=== PATIENT | female | born 1990 | race Caucasian/White ===

== ENCOUNTER 2017-01-14 16:57 | Inpatient (IN) | payer OTHER ==
[2017-01-14 19:33] VITALS: BMI 23.3
--- NOTE | 2017-01-14 20:15 | HP ---
COWS - Scale Resting Pulse: 1= [place] 81-100 Sweatin=Flushed/Facial Moisture Restless Observation: 5= Unable to Sit Still Pupil Size: 2= Moderately Dilated Bone or Joint Aches: 4=Acute Joint/Muscle Pain Runny Nose/ Eye Tearin= Nasal Congestion GI Upset > 30mins: 1= Stomach Cramp Tremor Observation: 2= Slight Tremor Visible Yawning Observation: 1= 1-2x During Session Anxiety or Irritability: 4=Extreme Anxiety Goose Flesh Skin: 0=Smooth Skin COWS Score: 23 Admission ROS S - HPI Chief Complaint: C/O WITHDRAWAL SX'S. SEEKING DETOX TXMENT. Allergies/Adverse Reactions: Allergies Allergy/AdvReac Type Severity Reaction Status Date / Time No Known Allergies Allergy Verified 01/14/17 20:09 History of Present Illness: 26 Y.O. FEMALE WITH OPIOID DEPENDENCE ADMITTED FOR DETOX TXMENT. DENIES RECENT DETOX. REPORTS LONGEST DRUG FREE PERIOD 7 MONTHS. CLIENT AWARE TXMENT IS FOR APPROX 7 DAYS HAS AGREED TO ADMISSION. Exam Limitations: No Limitations - Ebola screening Have you traveled outside of the country in the last 21 days: No Have you had contact with anyone from an Ebola affected area: No Have you been sick,other than usual withdrawal symptoms: No Do you have a fever: No - Review of Systems Constitutional: Chills, Loss of Appetite, Malaise, Night Sweats EENT: reports: No Symptoms Reported Respiratory: reports: No Symptoms reported Cardiac: reports: No Symptoms Reported GI: reports: Poor Appetite, Poor Fluid Intake, Abdominal cramping : reports: No Symptoms Reported Musculoskeletal: reports: Back Pain Integumentary: reports: No Symptoms Reported Neuro: reports: No Symptoms reported Endocrine: reports: No Symptoms Reported Hematology: reports: No Symptoms Reported Psychiatric: reports: Anxious Other Systems: Reviewed and Negative Patient History - Patient Medical History Hx Anemia: No Hx Asthma: Yes Hx Chronic Obstructive Pulmonary Disease (COPD): No Hx Cancer: No Hx Cardiac Disorders: No Hx Congestive Heart Failure: No Hx Hypertension: No Hx Hypercholesterolemia: No Hx Pacemaker: No HX Cerebrovascular Accident: No Hx Seizures: No Hx Dementia: No Hx Diabetes: No Hx Gastrointestinal Disorders: Yes (GERD) Hx Liver Disease: No Hx Genitourinary Disorders: No Hx Sexually Transmitted Disorders: No Hx Renal Disease (ESRD): No Hx Thyroid Disease: No Hx Human Immunodeficiency Virus (HIV): No Hx Hepatitis C: No Hx Depression: Yes (NO MEDS) Hx Suicide Attempt: Yes (ATTEMPTED OD 11/2016. PRESENTLY DENIES SI) Hx Bipolar Disorder: Yes (NO MEDS) Hx Schizophrenia: No Other Medical History: DENIES - Patient Surgical History Past Surgical History: No Hx Neurologic Surgery: No Hx Cataract Extraction: No Hx Cardiac Surgery: No Hx Lung Surgery: No Hx Breast Surgery: No Hx Breast Biopsy: No Hx Abdominal Surgery: No Hx Appendectomy: No Hx Cholecystectomy: No Hx Genitourinary Surgery: No Hx Section: No Other Surgical History: birthmark removal - PPD History Previous Implant?: Yes Documented Results: Negative w/proof Implanted On Prior [facility] Admission?: Yes Date: 08/30/14 PPD to be Administered?: Yes - Reproductive History Patient is a Female of Child Bearing Age (11 -55 yrs old): Yes Last Menstrual Period: 01/24/16 (IRREG) Patient : No (NEG UHCG) - Smoking Cessation Smoking history: Current every day smoker Have you smoked in the past 12 months: Yes Aproximately how many cigarettes per day: 20 Cigars Per Day: 0 Hx Chewing Tobacco Use: No Initiated information on smoking cessation: Yes 'Breaking Loose' booklet given: 01/14/17 - Substance & Tx. History Hx Alcohol Use: No Hx Substance Use: Yes Substance Use Type: Cocaine, Heroin Hx Substance Use Treatment: Yes ([facility]) - Substances Abused HEROIN Route: Injection Frequency: Daily Amount used: 2 BUNDLES Age of first use: 19 Date of Last Use: 01/13/17 COCAINE Route: Smoking Frequency: 3-6 times per week Amount used: $60/ D Age of first use: 23 Date of Last Use: 01/13/17 Family Disease History - Family Disease History Family Disease History: Other: Father (alcohol,dsa) Admission Physical Exam BHS - Vital Signs Vital Signs: Vital Signs - 24 hr 01/14/17 19:30 Temperature 97.8 F Pulse Rate 91 H Respiratory 18 Rate Blood Pressure 111/67 - Physical General Appearance: Yes: Disheveled, Tremorous, Anxious HEENTM: Yes: EOMI, Normocephalic, Normal Voice, ARIN, Pharynx Normal Respiratory: Yes: Chest Non-Tender, Lungs Clear, Normal Breath Sounds, No Respiratory Distress, No Accessory Muscle Use Neck: Yes: No masses,lesions,Nodules, Supple, Trachea in good position Breast: Yes: Breast Exam Deferred Cardiology: Yes: Regular Rhythm, S1, S2, Tachycardia Abdominal: Yes: Normal Bowel Sounds, Non Tender, Soft Genitourinary: Yes: Within Normal Limits Back: Yes: Within Normal Limits Musculoskeletal: Yes: full range of Motion, Gait Steady Extremities: Yes: Normal Capillary Refill, Normal Range of Motion, Non-Tender, Tremors Neurological: Yes: wholesaler II-XII NML intact, Fully Oriented, Alert, Motor Strength 5/5 Integumentary: Yes: Track Fuentes (UE) Lymphatic: Yes: Within Normal Limits - Diagnostic (1) Nicotine dependence Current Visit: Yes Status: Chronic Qualifiers: Nicotine product type: cigarettes Substance use status: uncomplicated Qualified Code(s): F17.210 - Nicotine dependence, cigarettes, uncomplicated (2) Opioid dependence with withdrawal Current Visit: Yes Status: Chronic (3) Cocaine dependence, uncomplicated Current Visit: Yes Status: Chronic (4) Asthma Current Visit: Yes Status: Chronic Qualifiers: Asthma severity: mild intermittent Asthma complication type: uncomplicated Qualified Code(s): J45.20 - Mild intermittent asthma, uncomplicated Cleared for Admission [facility] - Detox or Rehab [facility] Level of Care: Medically Managed Detox Regimen/Protocol: Methadone [facility] Breath Alcohol Content Breath Alcohol Content: 0 Urine Pregancy Test - Result Urine Test Results: Negative- NO Line Present Urine Drug Screen - Results Drug Screen Negative: No Urine Drug Screen Results: DALE-Cocaine, OPI-Opiates, OXY-Oxycodone
[2017-01-14] MEDS ORDERED: P-EPHED 60MG/TRIPROLIDI 2.5MG TABLET PO PRN (20:25)
[2017-01-14] MEDS ORDERED: MAGNESIUM CITRATE 300 ML BOTTLE PO PRN (20:25)
[2017-01-14] MEDS ORDERED: ACETAMINOPHEN 325 MG TABLET (FP) PO PRN (20:25)
[2017-01-14] MEDS ORDERED: MENTHOL/PHENOL 1 EACH UD MM PRN (20:25)
[2017-01-14] MEDS ORDERED: NICOTINE POLACRILEX 2 MG GUM BC PRN (20:25)
[2017-01-14] MEDS ORDERED: IBUPROFEN 400 MG TABLET (FP) PO PRN (20:25)
[2017-01-14] MEDS ORDERED: LOPERAMIDE HCL 2 MG CAPSULE PO PRN (20:25)
[2017-01-14] MEDS ORDERED: MAGNESIUM HYDROX 2400MG/30ML ORAL SUSPENSION 30 ML CUP PO PRN (20:25)
[2017-01-14] MEDS ORDERED: guaiFENesin/D-METHORPHAN HB 10 ML UNIT-DOSE CUPS PO PRN (20:25)
[2017-01-14] MEDS ORDERED: MAG HYDROX/AL HYDROX/SIMETH 30 ML UNIT-DOSE CUP PO PRN (20:25)
[2017-01-14] MEDS ORDERED: METHADONE HCL 10 MG TABLET (FOR DETOX USE ONLY) PO ONE ×3 (20:25→23:00)
[2017-01-14] MEDS ORDERED: hydrOXYzine PAMOATE 50 MG CAPSULE (FP) PO PRN (20:25)
[2017-01-14] MEDS ORDERED: diphenhydrAMINE HCL 50 MG CAPSULE PO PRN (20:25)
[2017-01-14] MEDS ORDERED: ALBUTEROL SO4 2.5/IPRATROPIUM 0.5 INH SOL 3 ML VIAL.NEB. NEB PRN (20:27)
[2017-01-14] MEDS: diazePAM 5 MG TABLET PO PRN (22:45)
[2017-01-14] MEDS: NICOTINE 21 MG/24 HOURS TOPICAL PATCH TD SCH (22:47)
[2017-01-14] MEDS: THIAMINE HCL 100 MG TABLET (FP) PO SCH (22:49)
[2017-01-14 23:03] LABS: URINE APPEARANCE CLOUDY; URINE BILIRUBIN NEGATIVE (NEGATIVE); URINE BLOOD NEGATIVE (NEGATIVE); URINE COLOR DKYELLOW; URINE GLUCOSE (UA) NEGATIVE (NEGATIVE); URINE KETONE NEGATIVE (NEGATIVE); URINE NITRITE NEGATIVE (NEGATIVE); URINE UROBILINOGEN 2.0 E.U/dl E.U./dl (0.2-1.0)
[2017-01-14 23:11] LABS: URINE LEUK ESTERASE 2+ (NEGATIVE); URINE PROTEIN 1+ (NEGATIVE)
[2017-01-14 23:14] LABS: URINE BACTERIA RARE /hpf (NONE SEEN); URINE MUCUS RARE; URINE RBC 3 /hpf (0-3); URINE WBC 42 /hpf (3-5)
[2017-01-15] MEDS ORDERED: METHADONE HCL 10 MG TABLET (FOR DETOX USE ONLY) PO ONE (10:00)
--- NOTE | 2017-01-15 10:00 | PN ---
BHS COWS - Scale Resting Pulse: 0= [place] 80 or Below Sweatin=Flushed/Facial Moisture Restless Observation: 1= Difficult to Sit Still Pupil Size: 0= Normal to Room Light Bone or Joint Aches: 2= Severe Diffuse Aches Runny Nose/ Eye Tearin= Runny Nose/Eyes GI Upset > 30mins: 2= Nausea/Diarrhea Tremor Observation of Outstretched Hands: 2= Slight Tremor Visible Yawning Observation: 2= >3x During Session Anxiety or Irritability: 2=Irritable/Anxious Goose Flesh Skin: 3=Piloerection COWS Score: 18 BHS Progress Note (SOAP) Subjective: sweats irritable agitation anxiety interrupted sleep nausea Objective: 01/15/17 09:59 Vital Signs Temperature 97.9 F 01/15/17 06:16 Pulse Rate 71 01/15/17 06:16 Respiratory Rate 18 01/15/17 06:16 Blood Pressure 100/61 01/15/17 06:16 O2 Sat by Pulse Oximetry (%) Laboratory Tests 01/14/17 22:50 Urine Color Dkyellow Urine Appearance Cloudy Urine pH 5.0 Ur Specific [place] 1.026 Urine Protein 1+ H Urine Glucose (UA) Negative Urine Ketones Negative Urine Blood Negative Urine Nitrite Negative Urine Bilirubin Negative Urine Urobilinogen 2.0 e.u/dl H Ur Leukocyte Esterase 2+ H D Urine RBC 3 Urine WBC 42 Ur Epithelial Cells Many Urine Bacteria Rare Urine Mucus Rare labs pending awake/alert ambulating no acute distress Assessment: 01/15/17 10:00 withdrawal sx Plan: continue detox increase fluids labs pending tigan prn
[2017-01-15] MEDS ORDERED: TRIMETHOBENZAMIDE HCL 300 MG CAPSULE PO PRN (10:01)
[2017-01-15] MEDS: NICOTINE 21 MG/24 HOURS TOPICAL PATCH TD SCH (10:13)
[2017-01-15] MEDS: PRENATAL VITAMINS W/ FOLIC ACID TABLET (FP) PO SCH (10:14)
[2017-01-15] MEDS: diazePAM 5 MG TABLET PO PRN ×3 (10:14→22:28)
[2017-01-15 10:35] LABS: ALBUMIN 3.3 g/dl (3.4-5.0); ANION GAP 4 (8-16); CALCIUM 8.9 mg/dL (8.5-10.1); CO2 33 mmol/L (21-32); GLUCOSE,RANDOM 80 mg/dL (74-106)
[2017-01-15 10:38] LABS: MCH 28.9 pg (25.7-33.7); MCHC 33.5 g/dl (32.0-36.0); MEAN CELL VOLUME 86.4 fl (80-96); MEAN PLT VOLUME 8.9 fl (7.5-11.1); PLATELET COUNT 224 K/MM3 (134-434); RDW 13.8 % (11.6-15.6); WHITE BLOOD COUNT 8.5 K/mm3 (4.0-10.0)
[2017-01-15 10:40] LABS: ALK PHOS 60 U/L (45-117); BILIRUBIN,TOTAL 0.3 mg/dL (0.2-1.0); CREATININE 0.6 mg/dL (0.55-1.02); SGOT/AST 12 U/L (15-37); SGPT/ALT 14 U/L (12-78); TOT PROT 6.6 g/dl (6.4-8.2)
--- NOTE | 2017-01-15 11:06 | EKG ---
Test Reason : Blood Pressure : / mmHG Vent. Rate : 060 BPM Atrial Rate : 060 BPM P-R Int : 146 ms QRS Dur : 094 ms QT Int : 442 ms P-R-T Axes : 061 066 069 degrees QTc Int : 442 ms NORMAL SINUS RHYTHM NORMAL ECG NO PREVIOUS ECGS AVAILABLE Confirmed by RAMOS UFENTES, SUMEET ([id number]) on 01/15/2017 11:06:31 AM Referred By: David Torres Confirmed By:SUMEET BEASLEY MD
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
[2017-01-15] MEDS ORDERED: ZOLPIDEM TARTRATE 5 MG TABLET PO PRN (16:15)
[2017-01-15] MEDS: THIAMINE HCL 100 MG TABLET (FP) PO SCH (22:28)
[2017-01-16] MEDS ORDERED: METHADONE HCL 5 MG TABLET (FOR DETOX USE ONLY) PO ONE (10:00)
[2017-01-16] MEDS: PRENATAL VITAMINS W/ FOLIC ACID TABLET (FP) PO SCH (10:13)
[2017-01-16] MEDS: diazePAM 5 MG TABLET PO PRN (10:13)
[2017-01-16] MEDS: NICOTINE 21 MG/24 HOURS TOPICAL PATCH TD SCH (10:14)
[2017-01-16] MEDS ORDERED: CYCLOBENZAPRINE HCL 10 MG TABLET (FP) PO PRN (10:50)
--- NOTE | 2017-01-16 10:50 | PN ---
S COWS - Scale Resting Pulse: 1= [place] 81-100 Sweatin=Flushed/Facial Moisture Restless Observation: 1= Difficult to Sit Still Pupil Size: 1= Pupils >than Normal Bone or Joint Aches: 2= Severe Diffuse Aches Runny Nose/ Eye Tearin= Nasal Congestion GI Upset > 30mins: 1= Stomach Cramp Tremor Observation of Outstretched Hands: 1= Tremor [place], Not Seen Yawning Observation: 0= None Anxiety or Irritability: 1=Feels Anxious/Irritable Goose Flesh Skin: 0=Smooth Skin COWS Score: 11 S Progress Note (SOAP) Subjective: interrupted sleep, sweats, lbp Objective: 01/16/17 10:47 Vital Signs Temperature 98.4 F 01/16/17 10:16 Pulse Rate 96 H 01/16/17 10:16 Respiratory Rate 20 01/16/17 10:16 Blood Pressure 108/63 01/16/17 10:16 O2 Sat by Pulse Oximetry (%) Laboratory Tests 01/14/17 01/14/17 01/15/17 07:00 22:50 07:00 WBC 8.5 RBC 4.44 Hgb 12.8 Hct 38.4 MCV 86.4 MCHC 33.5 RDW 13.8 Plt Count 224 MPV 8.9 Sodium Potassium Chloride Carbon Dioxide Anion Gap BUN Creatinine Creat Clearance w eGFR Random Glucose Calcium Total Bilirubin AST ALT Alkaline Phosphatase Total Protein Albumin Urine Color Dkyellow Urine Appearance Cloudy Urine pH 5.0 Ur Specific [place] 1.026 Urine Protein 1+ H Urine Glucose (UA) Negative Urine Ketones Negative Urine Blood Negative Urine Nitrite Negative Urine Bilirubin Negative Urine Urobilinogen 2.0 e.u/dl H Ur Leukocyte Esterase 2+ H D Urine RBC 3 Urine WBC 42 Ur Epithelial Cells Many Urine Bacteria Rare Urine Mucus Rare RPR Titer Hepatitis C Antibody <0.1 01/15/17 01/15/17 07:00 07:00 WBC RBC Hgb Hct MCV MCHC RDW Plt Count MPV Sodium 144 Potassium 4.6 Chloride 107 Carbon Dioxide 33 H Anion Gap 4 L BUN 10 Creatinine 0.6 Creat Clearance w eGFR > 60 Random Glucose 80 Calcium 8.9 Total Bilirubin 0.3 D AST 12 L ALT 14 D Alkaline Phosphatase 60 Total Protein 6.6 Albumin 3.3 L Urine Color Urine Appearance Urine pH Ur Specific [place] Urine Protein Urine Glucose (UA) Urine Ketones Urine Blood Urine Nitrite Urine Bilirubin Urine Urobilinogen Ur Leukocyte Esterase Urine RBC Urine WBC Ur Epithelial Cells Urine Bacteria Urine Mucus RPR Titer Nonreactive Hepatitis C Antibody pt aox3 in nad ambulating Assessment: 01/16/17 10:48 withdrawal sx;s lbp Plan: cont. detox increase fluids flexeril 10mg tid/prn
[2017-01-16 14:02] VITALS: BP 113/72; PULSE 85; TEMP 97.7
--- NOTE | 2017-01-16 17:03 | DS ---
[facility] Detox Discharge Summary Admission Date: 01/14/17 Discharge Date: 01/16/17 - History Present History: Cocaine Dependence, Opioid Dependence Pertinent Past History: Asthma - Physical Exam Results Vital Signs: Vital Signs Temperature 97.7 F 01/16/17 14:02 Pulse Rate 85 01/16/17 14:02 Respiratory Rate 18 01/16/17 14:02 Blood Pressure 113/72 01/16/17 14:02 O2 Sat by Pulse Oximetry (%) Pertinent Admission Physical Exam Findings: Withdrawal sx. Laboratory Last Values WBC 8.5 K/mm3 (4.0-10.0) 01/15/17 07:00 RBC 4.44 M/mm3 (3.60-5.2) 01/15/17 07:00 Hgb 12.8 GM/dL (10.7-15.3) 01/15/17 07:00 Hct 38.4 % (32.4-45.2) 01/15/17 07:00 MCV 86.4 fl (80-96) 01/15/17 07:00 MCHC 33.5 g/dl (32.0-36.0) 01/15/17 07:00 RDW 13.8 % (11.6-15.6) 01/15/17 07:00 Plt Count 224 K/MM3 (134-434) 01/15/17 07:00 MPV 8.9 fl (7.5-11.1) 01/15/17 07:00 Sodium 144 mmol/L (136-145) 01/15/17 07:00 Potassium 4.6 mmol/L (3.5-5.1) 01/15/17 07:00 Chloride 107 mmol/L (98-107) 01/15/17 07:00 Carbon Dioxide 33 mmol/L (21-32) H 01/15/17 07:00 Anion Gap 4 (8-16) L 01/15/17 07:00 BUN 10 mg/dL (7-18) 01/15/17 07:00 Creatinine 0.6 mg/dL (0.55-1.02) 01/15/17 07:00 Creat Clearance w eGFR > 60 (>60) 01/15/17 07:00 Random Glucose 80 mg/dL (74-106) 01/15/17 07:00 Calcium 8.9 mg/dL (8.5-10.1) 01/15/17 07:00 Total Bilirubin 0.3 mg/dL (0.2-1.0) D 01/15/17 07:00 AST 12 U/L (15-37) L 01/15/17 07:00 ALT 14 U/L (12-78) D 01/15/17 07:00 Alkaline Phosphatase 60 U/L (45-117) 01/15/17 07:00 Total Protein 6.6 g/dl (6.4-8.2) 01/15/17 07:00 Albumin 3.3 g/dl (3.4-5.0) L 01/15/17 07:00 Urine Color Dkyellow 01/14/17 22:50 Urine Appearance Cloudy 01/14/17 22:50 Urine pH 5.0 (5.0-8.0) 01/14/17 22:50 Ur Specific [place] 1.026 (1.001-1.035) 01/14/17 22:50 Urine Protein 1+ (NEGATIVE) H 01/14/17 22:50 Urine Glucose (UA) Negative (NEGATIVE) 01/14/17 22:50 Urine Ketones Negative (NEGATIVE) 01/14/17 22:50 Urine Blood Negative (NEGATIVE) 01/14/17 22:50 Urine Nitrite Negative (NEGATIVE) 01/14/17 22:50 Urine Bilirubin Negative (NEGATIVE) 01/14/17 22:50 Urine Urobilinogen 2.0 e.u/dl E.U./dl (0.2-1.0) H 01/14/17 22:50 Ur Leukocyte Esterase 2+ (NEGATIVE) H D 01/14/17 22:50 Urine RBC 3 /hpf (0-3) 01/14/17 22:50 Urine WBC 42 /hpf (3-5) 01/14/17 22:50 Ur Epithelial Cells Many /hpf (FEW) 01/14/17 22:50 Urine Bacteria Rare /hpf (NONE SEEN) 01/14/17 22:50 Urine Mucus Rare 01/14/17 22:50 RPR Titer Nonreactive (NONREACTIVE) 01/15/17 07:00 Hepatitis C Antibody <0.1 s/co ratio (0.0-0.9) 01/14/17 07:00 labs noted,repeat u/a ordered but not given by patient - Treatment Patient has Accepted a Rehab Referral to: Pt. refused referral because she's going to detention - Medication Discharge Medications: Ambulatory Orders NK [No Known Home Medication] 08/28/14 - Diagnosis (1) Nicotine dependence Current Visit: Yes Status: Acute Qualifiers: Nicotine product type: cigarettes Substance use status: uncomplicated Qualified Code(s): F17.210 - Nicotine dependence, cigarettes, uncomplicated (2) Opioid dependence with withdrawal Current Visit: Yes Status: Acute (3) Asthma Current Visit: Yes Status: Chronic Qualifiers: Asthma severity: mild intermittent Asthma complication type: uncomplicated Qualified Code(s): J45.20 - Mild intermittent asthma, uncomplicated (4) Cocaine dependence, uncomplicated Current Visit: Yes Status: Acute (5) Drug-induced mood disorder Current Visit: Yes Status: Acute (6) Insomnia Current Visit: Yes Status: Acute Qualifiers: Insomnia type: drug-induced Qualified Code(s): F19.982 - Other psychoactive substance use, unspecified with psychoactive substance-induced sleep disorder - AMA Did Patient Leave Against Medical Advice: Yes
[2017-01-16 20:59] LABS: URINE APPEARANCE CLEAR; URINE BILIRUBIN NEGATIVE (NEGATIVE); URINE BLOOD NEGATIVE (NEGATIVE); URINE COLOR YELLOW; URINE GLUCOSE (UA) NEGATIVE (NEGATIVE); URINE KETONE NEGATIVE (NEGATIVE); URINE LEUK ESTERASE NEGATIVE (NEGATIVE); URINE NITRITE NEGATIVE (NEGATIVE); URINE PROTEIN NEGATIVE (NEGATIVE); URINE UROBILINOGEN NEGATIVE E.U./dl (0.2-1.0)
[2017-01-17] MEDS ORDERED: METHADONE HCL 5 MG TABLET (FOR DETOX USE ONLY) PO ONE (10:00)
[2017-01-18] MEDS ORDERED: METHADONE HCL 10 MG TABLET (FOR DETOX USE ONLY) PO ONE (10:00)
[2017-01-19] MEDS ORDERED: METHADONE HCL 5 MG TABLET (FOR DETOX USE ONLY) PO ONE (06:00)
== END 2017-01-16 17:00 | disposition left against medical advice (07) | DRG 770 ==
LOC: YASAS 16:57 → Y6N 21:35
PROVIDERS: ADMIT Internal Medicine Addiction Medicine; ATTEND Internal Medicine Addiction Medicine
PROC: HZ2ZZZZ Detoxification Services for Substance Abuse Treatment (ICD-10-PCS; principal; 2017-01-14)
DX: F11.23 Opioid dependence with withdrawal (principal); F14.20 Cocaine dependence, uncomplicated; F17.210 Nicotine dependence, cigarettes, uncomplicated; F19.282 Other psychoactive substance dependence with psychoactive substance-induced sleep disorder; J45.909 Unspecified asthma, uncomplicated; M54.5 Low back pain; K21.9 Gastro-esophageal reflux disease without esophagitis; R00.0 Tachycardia, unspecified; Z91.5 Personal history of self-harm
CPT/HCPCS: 36415; 80053; 81003; 81015; 85027; 86593; 93005; 93010